=== PATIENT | male | born 1985 | race Caucasian/White ===

== ENCOUNTER 2021-04-10 18:29 | Emergency (ER) | payer MEDICAID ==
[~2021-04-10] VITALS: Ht 188 cm; Wt 151.0 kg
[~2021-04-10 18:29] MED LIST: CIPRO500 MG OR; FLOXIN OTIC OT; GENTAMICIN SULF5 ML OD; HYDROCHLOROT12.5 MG OR; NO MEDS; PERCOCET 5/325M1 TAB OR; TRAZODONE50 MG OR
[2021-04-10 18:48] VITALS: BP 160/102
[2021-04-10] MEDS ORDERED: METOPROL TAR25 MG PO (20:39)
[2021-04-10] MEDS ORDERED: PAROXETINE20 MG PO (20:40)
== END 2021-04-10 20:30 | disposition home or self-care (01) ==
LOC: ED 18:29
DX: B34.9 Viral infection, unspecified (principal); I10 Essential (primary) hypertension; F41.9 Anxiety disorder, unspecified; F17.200 Nicotine dependence, unspecified, uncomplicated; Z20.822 Contact with and (suspected) exposure to COVID-19

== ENCOUNTER 2022-04-22 09:45 | Emergency (ER) | payer MEDICAID ==
[~2022-04-22] VITALS: Ht 188 cm; Wt 145.4 kg
[~2022-04-22 09:45] MED LIST changes: +METOPROL TAR25 MG PO; +PAROXETINE20 MG PO
[2022-04-22 10:42] VITALS: BP 134/89
[2022-04-22 10:46] VITALS: BP 134/92
[2022-04-22 11:01] VITALS: BP 124/81
[2022-04-22] MEDS ORDERED: CIPROFLOXACN500 MG PO (11:01)
[2022-04-22 11:10] VITALS: BP 124/81
== END 2022-04-22 11:07 | disposition home or self-care (01) ==
LOC: ED 09:45
DX: S91.332A Puncture wound without foreign body, left foot, initial encounter (principal)